=== PATIENT | female | born 1985 | race Two or more races ===

== ENCOUNTER 2018-04-07 17:56 | Emergency (ER) | payer MEDICAID ==
[~2018-04-07] VITALS: Ht 157.5 cm; Wt 113.4 kg
[2018-04-07 18:19] VITALS: BP 147/75
== END 2018-04-07 22:21 | disposition left against medical advice (07) ==
LOC: ER 17:56
DX: R21 Rash and other nonspecific skin eruption (principal); Z53.21 Procedure and treatment not carried out due to patient leaving prior to being seen by health care provider

== ENCOUNTER 2018-04-08 07:33 | Emergency (ER) | payer MEDICAID ==
[~2018-04-08] VITALS: Ht 157.5 cm; Wt 113.4 kg
[2018-04-08 07:48] VITALS: BP 150/74
[2018-04-08] MEDS ORDERED: IBUPROFEN 800 MG TAB PO ONE ×2 (08:00)
== END 2018-04-08 08:10 | disposition home or self-care (01) ==
LOC: ER 07:37
DX: B02.8 Zoster with other complications (principal)

== ENCOUNTER 2018-09-16 19:04 | Emergency (ER) | payer MEDICAID ==
[~2018-09-16] VITALS: Ht 157.5 cm; Wt 72.6 kg
[2018-09-16 19:29] VITALS: BP 111/69
== END 2018-09-16 20:30 | disposition home or self-care (01) ==
LOC: ER 19:11
DX: L42 Pityriasis rosea (principal)

== ENCOUNTER 2020-10-17 17:32 | Emergency (ER) | payer MEDICAID ==
[~2020-10-17] VITALS: Ht 157.5 cm; Wt 118.8 kg
[2020-10-17 18:07] VITALS: BP 135/65
[2020-10-17 19:42] LABS: Basophils # (auto) 0 10 ^3/uL (0-0.2); Basophils % (auto) 0.5 % (0.0-2.0); Eosinophils # (auto) 0.1 10 ^3/uL (0-0.8); Eosinophils % (auto) 0.6 % (0.0-7.0); Hematocrit 37.1 % (36.0-46.0); Hemoglobin 12.6 g/dL (12.2-16.2); Lymphocytes # (auto) 1.8 10 ^3/uL (0.4-5.4); Lymphocytes % (auto) 19.9 % (10.0-50.0); Mean Corpuscular Hemoglobin 29.4 pg (28.0-32.0); Mean Corpuscular Hgb Conc. 34.1 g/dL (32.0-36.0); Mean Corpuscular Volume 86.2 fL (80.0-100.0); Monocytes # (auto) 0.6 10 ^3/uL (0-1.3); Monocytes % (auto) 6.8 % (0.0-12.0); Neutrophils # (auto) 6.5 10 ^3/uL (1.6-8.6); Neutrophils % (auto) 72.2 % (37.0-80.0); Platelet Count (auto) 284 10^3/uL (140-450); Red Cell Distribution Width 14.5 % (11.8-14.3); White Blood Cell 8.9 10^3/uL (4.4-10.8)
[2020-10-17 19:50] LABS: Alanine Aminotransferase 34 U/L (13-56); Albumin 3.7 g/dL (3.4-5.0); Anion Gap 5 (5-15); Aspartate Aminotransferase 15 U/L (15-37); BUN/Creatinine Ratio 16.4; Blood Urea Nitrogen 9 mg/dL (7-18); Calcium 8.9 mg/dL (8.5-10.1); Carbon Dioxide 27 mmol/L (21-32); Chloride 106 mmol/L (98-107); GFR African American 164 mL/min; GFR Non-African American 135 mL/min; Glucose 95 mg/dL (74-106); Potassium 4.1 mmol/L (3.5-5.1); Sodium 138 mmol/L (136-145)
[2020-10-17 19:54] LABS: Alkaline Phosphatase 79 U/L (45-117); Bilirubin, Total 0.1 mg/dL (0.2-1.0); Total Protein 7.8 g/dL (6.4-8.2)
[2020-10-17 20:21] LABS: Urine Bacteria FEW /hpf (None Seen); Urine Blood Negative /uL (Negative); Urine Specific Gravity 1.014 (1.001-1.035); Urine WBC 3 /hpf (0 - 5)
== END 2020-10-17 21:45 | disposition home or self-care (01) ==
LOC: ER 17:32
DX: M43.17 Spondylolisthesis, lumbosacral region (principal); G58.9 Mononeuropathy, unspecified; Z32.02 Encounter for pregnancy test, result negative
CPT/HCPCS: 36415; 72131; 80053; 81001; 81025; 83880; 84484; 85025; 85049; 93970

== ENCOUNTER 2021-08-11 17:23 | Emergency (ER) | payer MEDICAID ==
[~2021-08-11] VITALS: Ht 157.5 cm; Wt 117.9 kg
[2021-08-11 18:10] LABS: Urine Bacteria FEW /hpf (None Seen); Urine Blood 1+ /uL (Negative); Urine Mucus FEW (None Seen); Urine WBC 2 /hpf (0 - 5)
[2021-08-11] MEDS ORDERED: KETOROLAC TROMETH 60MG/2ML VIAL IM ONE (21:00)
[2021-08-11 22:25] VITALS: BP 135/65
== END 2021-08-11 22:25 | disposition home or self-care (01) ==
LOC: ER 17:24
DX: N83.202 Unspecified ovarian cyst, left side (principal); N83.201 Unspecified ovarian cyst, right side
CPT/HCPCS: 76830; 76856; 81001